=== PATIENT | female | born 1940 | race Caucasian/White ===

== ENCOUNTER 2017-04-20 18:05 | Emergency (ER) | payer MEDICARE ==
[2017-04-20] MEDS ORDERED: Ibuprofen 600 MG Tab PO ONE (18:20)
[2017-04-20] MEDS ORDERED: Sodium Chloride 0.9% 1,000 ML IV ONE (20:25)
--- NOTE | 2017-04-20 21:42 | EDM.PDOC ---
ED HPI GENERAL MEDICAL PROBLEM - General Chief Complaint: Gastrointestinal Problem Stated Complaint: TEMP, VERY CONFUSED, MONING Time Seen by Provider: 04/20/17 18:20 Source of Information: Reports: Patient, Family, RN History Limitations: Reports: Altered Mental Status - History of Present Illness INITIAL COMMENTS - FREE TEXT/NARRATIVE: 76 y.o.w.f with vascular dementia, came from the alf to the ed due to loose stool, poor po intake, fever, less active. Pt is not able to give a HPI Onset: Unknown/Unsure Onset Date: 04/20/17 Onset Time: 07:00 Duration: Hour(s):, Day(s):, Intermittent Location: Reports: Abdomen, Generalized Quality: Reports: Other (?) Severity: Mild Improves with: Reports: None Worsens with: Reports: None Associated Symptoms: Reports: Weakness - Related Data Allergies Allergy/AdvReac Type Severity Reaction Status Date / Time No Known Allergies Allergy Verified 06/30/14 14:02 Home Meds: Home Meds Aspirin [Roseann Chewable Aspirin] 81 mg PO DAILY 06/10/14 [History] Clopidogrel [Plavix] 75 mg PO DAILY 06/10/14 [History] Isosorbide Mononitrate [Imdur] 30 mg PO DAILY 06/10/14 [History] Metoprolol Succinate 25 mg PO DAILY 06/10/14 [History] Acetaminophen [Tylenol] 650 mg PO Q4H PRN #100 tablet 07/11/14 [Rx] Losartan Potassium 12.5 mg PO DAILY 04/20/17 [History] levETIRAcetam [Keppra] 500 mg BID 04/20/17 [History] Past Medical History HEENT History: Reports: Impaired Vision Cardiovascular History: Reports: CAD, Hypertension, Other (See Below) Other Cardiovascular History: Atherosclerotic heart Respiratory History: Reports: None Genitourinary History: Reports: Urinary 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 Psychiatric History: Reports: Dementia - Past Surgical History GI Surgical History: Reports: Other (See Below) Other GI Surgeries/Procedures: patient has a colostomy. Social & Family History - Family History Family Medical History: Noncontributory - Tobacco Use Smoking Status *Q: Never Smoker - Caffeine Use Caffeine Use: Reports: None - Alcohol Use Days Per Week of Alcohol Use: 0 Number of Drinks Per Day: 1 Total Drinks Per Week: 0 - Recreational Drug Use Recreational Drug Use: No - Living Situation & Occupation Living situation: Reports: , with Spouse ED ROS GENERAL - Review of Systems Review Of Systems: Unable To Obtain (due to vasular dementia) ED EXAM, GI/ABD - Physical Exam Exam: See Below Exam Limited By: Altered Mental Status General Appearance: Alert, WD/WN, Mild Distress Eyes: Bilateral: Normal Appearance Ears: Normal External Exam Nose: Normal Inspection Throat/Mouth: Other (dry mucosal membrane) Head: Atraumatic, Normocephalic Neck: Normal Inspection, Supple, Non-Tender, Full Range of Motion Respiratory/Chest: No Respiratory Distress, Lungs Clear, Normal Breath Sounds Cardiovascular: Normal Peripheral Pulses, Regular Rate, Rhythm, No Edema, No Gallop GI/Abdominal Exam: Normal Bowel Sounds, Non-Tender, No Distention, No Abnormal Bruit, No Mass, Pelvis Stable, Other (pt has a gastric outlet with loose stool) (Female) Exam: Deferred Rectal (Female) Exam: Deferred Back Exam: Normal Inspection, Full Range of Motion Extremities: Normal Inspection, Normal Range of Motion, Non-Tender, No Pedal Edema, Normal Capillary Refill Neurological: Alert, CN II-XII Intact Psychiatric: Other (vascular dementia) Skin Exam: Warm, Dry, Intact, Normal Color Lymphatic: No Adenopathy Course - Vital Signs Text/Narrative:: 76 y.o.w.f with vascular dementia, came from the alf to the ed due to loose stool, poor po intake, fever, less active. Pt is not able to give a HPI BP 11/67 Puls ox 94 on RA RR 16 PE: Dry mucosal membranes loose stool in the Gastric bag Labs: WBC 15.6 Lactic acid 1.8 S C diff neg Stool Cx is pending Impression: Dehydration, Diarrheam WBC 15.5 Tx: NS Reexam: Pt fet better after hydration. Stool Cx results are pending Plan: D/C with instructions Pt's daughter was present and understood and agreed with the instruction. Last Recorded V/S: Last Vital Signs Temp 37.3 C 04/20/17 20:48 Pulse 76 04/20/17 18:20 Resp 16 04/20/17 21:45 BP 118/45 L 04/20/17 21:45 Pulse Ox 96 04/20/17 21:45 - Orders/Labs/Meds Orders: Active Orders 24 hr Category Date Time Status CULTURE BLOOD [BC] Urgent Lab 04/20/17 20:48 Received CULTURE BLOOD [BC] Urgent Lab 04/20/17 20:54 Received CULTURE URINE [RM] Stat Lab 04/20/17 19:03 Received CULTURE-STOOL [MREF] Stat Lab 04/21/17 12:20 Uncollected OVA AND PARASITES [MREF] Stat Lab 04/21/17 12:20 Uncollected STOOL PH [MREF] Stat Lab 04/21/17 12:20 Uncollected Blood Culture x2 Reflex Set [OM.PC] Urgent Oth 04/20/17 20:36 Ordered Labs: Laboratory Tests 04/20/17 04/20/17 04/20/17 Range/Units 18:33 18:33 18:33 WBC 15.4 H (4.5-12.0) X10-3/uL RBC 5.55 H (3.23-5.20) x10(6)uL Hgb 16.1 H D (11.5-15.5) g/dL Hct 47.9 D (30.0-51.3) % MCV 86.3 (80-96) fL MCH 29.0 (27.7-33.6) pg MCHC 33.6 (32.2-35.4) g/dL RDW 13.2 (11.5-15.5) % Plt Count 357 (125-369) X10(3)uL MPV 7.5 (7.4-10.4) fL Add Manual Diff Yes Neutrophils % (Manual) 85 H (46-82) % Band Neutrophils % 3 (0-6) % Lymphocytes % (Manual) 9 L (13-37) % Monocytes % (Manual) 3 L (4-12) % PT 11.8 H (8.7-11.1) INR 1.17 H (0.89-1.13) Sodium 136 (135-145) mmol/L Potassium 4.2 (3.5-5.3) mmol/L Chloride 108 (100-110) mmol/L Carbon Dioxide 18 L (23-29) mmol/L BUN 25 H D (8-23) mg/dL Creatinine 1.0 (0.6-1.3) mg/dL Est Cr Clr Drug Dosing TNP Estimated GFR (MDRD) 54 L (>60) BUN/Creatinine Ratio 25.0 H (9-20) Glucose 122 H (80-116) mg/dL Lactic Acid (0.5-2.2) mmol/L Calcium 8.7 (8.6-10.2) mg/dL B-Natriuretic Peptide (0-100) pg/mL Urine Color (YELLOW) Urine Appearance (CLEAR) Urine pH (5.0-6.5) Ur Specific [place] (1.010-1.025) Urine Protein (NEGATIVE) mg/dL Urine Glucose (UA) (NEGATIVE) mg/dL Urine Ketones (NEGATIVE) mg/dL Urine Occult Blood (NEGATIVE) Urine Nitrite (NEGATIVE) Urine Bilirubin (NEGATIVE) Urine Urobilinogen (NEGATIVE) mg/dL Ur Leukocyte Esterase (NEGATIVE) Urine RBC (0) Urine WBC (0) Ur Squamous Epith Cells (NS,R,O) Urine Bacteria (NS) Stl Lactoferrin (TALHA) 04/20/17 04/20/17 04/20/17 Range/Units 18:33 18:33 19:03 WBC (4.5-12.0) X10-3/uL RBC (3.23-5.20) x10(6)uL Hgb (11.5-15.5) g/dL Hct (30.0-51.3) % MCV (80-96) fL MCH (27.7-33.6) pg MCHC (32.2-35.4) g/dL RDW (11.5-15.5) % Plt Count (125-369) X10(3)uL MPV (7.4-10.4) fL Add Manual Diff Neutrophils % (Manual) (46-82) % Band Neutrophils % (0-6) % Lymphocytes % (Manual) (13-37) % Monocytes % (Manual) (4-12) % PT (8.7-11.1) INR (0.89-1.13) Sodium (135-145) mmol/L Potassium (3.5-5.3) mmol/L Chloride (100-110) mmol/L Carbon Dioxide (23-29) mmol/L BUN (8-23) mg/dL Creatinine (0.6-1.3) mg/dL Est Cr Clr Drug Dosing Estimated GFR (MDRD) (>60) BUN/Creatinine Ratio (9-20) Glucose (80-116) mg/dL Lactic Acid 1.8 (0.5-2.2) mmol/L Calcium (8.6-10.2) mg/dL B-Natriuretic Peptide 94 (0-100) pg/mL Urine Color Yellow (YELLOW) Urine Appearance Slightly cloudy (CLEAR) Urine pH 5.0 (5.0-6.5) Ur Specific [place] 1.020 (1.010-1.025) Urine Protein Negative (NEGATIVE) mg/dL Urine Glucose (UA) Normal (NEGATIVE) mg/dL Urine Ketones Negative (NEGATIVE) mg/dL Urine Occult Blood Negative (NEGATIVE) Urine Nitrite Negative (NEGATIVE) Urine Bilirubin Negative (NEGATIVE) Urine Urobilinogen Normal (NEGATIVE) mg/dL Ur Leukocyte Esterase Negative (NEGATIVE) Urine RBC 0-5 (0) Urine WBC 0-5 (0) Ur Squamous Epith Cells Few H (NS,R,O) Urine Bacteria Few H (NS) Stl Lactoferrin (TALHA) 04/21/17 Range/Units 11:31 WBC (4.5-12.0) X10-3/uL RBC (3.23-5.20) x10(6)uL Hgb (11.5-15.5) g/dL Hct (30.0-51.3) % MCV (80-96) fL MCH (27.7-33.6) pg MCHC (32.2-35.4) g/dL RDW (11.5-15.5) % Plt Count (125-369) X10(3)uL MPV (7.4-10.4) fL Add Manual Diff Neutrophils % (Manual) (46-82) % Band Neutrophils % (0-6) % Lymphocytes % (Manual) (13-37) % Monocytes % (Manual) (4-12) % PT (8.7-11.1) INR (0.89-1.13) Sodium (135-145) mmol/L Potassium (3.5-5.3) mmol/L Chloride (100-110) mmol/L Carbon Dioxide (23-29) mmol/L BUN (8-23) mg/dL Creatinine (0.6-1.3) mg/dL Est Cr Clr Drug Dosing Estimated GFR (MDRD) (>60) BUN/Creatinine Ratio (9-20) Glucose (80-116) mg/dL Lactic Acid (0.5-2.2) mmol/L Calcium (8.6-10.2) mg/dL B-Natriuretic Peptide (0-100) pg/mL Urine Color (YELLOW) Urine Appearance (CLEAR) Urine pH (5.0-6.5) Ur Specific [place] (1.010-1.025) Urine Protein (NEGATIVE) mg/dL Urine Glucose (UA) (NEGATIVE) mg/dL Urine Ketones (NEGATIVE) mg/dL Urine Occult Blood (NEGATIVE) Urine Nitrite (NEGATIVE) Urine Bilirubin (NEGATIVE) Urine Urobilinogen (NEGATIVE) mg/dL Ur Leukocyte Esterase (NEGATIVE) Urine RBC (0) Urine WBC (0) Ur Squamous Epith Cells (NS,R,O) Urine Bacteria (NS) Stl Lactoferrin (TALHA) Positive Meds: Medications Discontinued Medications Generic Name Dose Route Start Last Admin Trade Name Flora PRN Reason Stop Dose Admin Sodium Chloride 1,000 mls @ 999 mls/hr 04/20/17 20:25 04/20/17 20:25 Normal Saline IV 04/20/17 21:25 999 mls/hr .BOLUS ONE Administration Ibuprofen 600 mg 04/20/17 18:20 04/20/17 19:48 Motrin PO 04/20/17 18:21 600 mg ONETIME ONE Administration Departure - Departure Time of Disposition: 21:43 Disposition: Home, Self-Care 01 Condition: Good Clinical Impression: Dehydration Diarrhea Qualifiers: Diarrhea type: unspecified type Qualified Code(s): R19.7 - Diarrhea, unspecified Dementia Qualifiers: Dementia type: vascular dementia - Discharge Information Instructions: Viral Gastroenteritis, Adult, [id number], Dehydration, Adult, [id number], Dehydration, Elderly, [id number] Referrals: Lani Zepeda PA [Primary Care Provider] - Forms: ED Department Discharge Additional Instructions: Please increase water intake, please follow up tomorrow for C Diff results. Please come back to the ed if your symptoms get worse acutely. - My Orders Last 24 Hours: My Active Orders 04/20/17 19:03 CULTURE URINE [RM] Stat 04/20/17 20:36 Blood Culture x2 Reflex Set [OM.PC] Urgent 04/20/17 20:48 CULTURE BLOOD [BC] Urgent 04/20/17 20:54 CULTURE BLOOD [BC] Urgent 04/21/17 12:20 CULTURE-STOOL [MREF] Stat OVA AND PARASITES [MREF] Stat STOOL PH [MREF] Stat - Assessment/Plan Last 24 Hours: My Active Orders 04/20/17 19:03 CULTURE URINE [RM] Stat 04/20/17 20:36 Blood Culture x2 Reflex Set [OM.PC] Urgent 04/20/17 20:48 CULTURE BLOOD [BC] Urgent 04/20/17 20:54 CULTURE BLOOD [BC] Urgent 04/21/17 12:20 CULTURE-STOOL [MREF] Stat OVA AND PARASITES [MREF] Stat STOOL PH [MREF] Stat
[2017-04-21 07:44] VITALS: BP 118/45
== END 2017-04-20 22:02 | disposition home or self-care (01) ==
LOC: FB.ED 18:05
DX: E86.0 Dehydration (principal); F01.50 Vascular dementia, unspecified severity, without behavioral disturbance, psychotic disturbance, mood disturbance, and anxiety; R19.7 Diarrhea, unspecified; I10 Essential (primary) hypertension; M19.90 Unspecified osteoarthritis, unspecified site; I25.10 Atherosclerotic heart disease of native coronary artery without angina pectoris; Z79.82 Long term (current) use of aspirin; Z79.899 Other long term (current) drug therapy
CPT/HCPCS: 36415; 80048; 81001; 83605; 83630; 83880; 85025; 85610; 87040; 87086; 87324; 96360; 99284; A9270; J7040; 51701

== ENCOUNTER 2017-07-08 21:46 | Emergency (ER) | payer MEDICARE ==
--- NOTE | 2017-07-08 22:45 | EDM.PDOC ---
ED HPI GENERAL MEDICAL PROBLEM - General Chief Complaint: Laceration Stated Complaint: LIP LAC Time Seen by Provider: 07/08/17 22:05 Source of Information: Reports: Patient History Limitations: Reports: No Limitations - History of Present Illness INITIAL COMMENTS - FREE TEXT/NARRATIVE: c/o lip lac from assisted, has dementia, no h/o falls, ate supper, felt well today staff noted a small cut on her upper lip, no other injuries, no blood found in room, staff not sure how she may have injured herself - Related Data Allergies Allergy/AdvReac Type Severity Reaction Status Date / Time No Known Allergies Allergy Verified 07/08/17 22:31 Home Meds: Home Meds Aspirin [Roseann Chewable Aspirin] 81 mg PO DAILY 06/10/14 [History] Clopidogrel [Plavix] 75 mg PO DAILY 06/10/14 [History] Isosorbide Mononitrate [Imdur] 30 mg PO DAILY 06/10/14 [History] Metoprolol Succinate 25 mg PO DAILY 06/10/14 [History] Acetaminophen [Tylenol] 650 mg PO Q4H PRN #100 tablet 07/11/14 [Rx] Losartan Potassium 12.5 mg PO DAILY 04/20/17 [History] levETIRAcetam [Keppra] 500 mg BID 04/20/17 [History] Past Medical History HEENT History: Reports: Impaired Vision Cardiovascular History: Reports: CAD, Hypertension, Other (See Below) Other Cardiovascular History: Atherosclerotic heart Respiratory History: Reports: None Genitourinary History: Reports: Urinary Incontinence 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 Psychiatric History: Reports: Dementia - Past Surgical History GI Surgical History: Reports: Other (See Below) Other GI Surgeries/Procedures: patient has a colostomy. Social & Family History - Family History Family Medical History: Noncontributory - Tobacco Use Smoking Status *Q: Never Smoker Second Hand Smoke Exposure: No - Caffeine Use Caffeine Use: Reports: Coffee, Soda - Alcohol Use Days Per Week of Alcohol Use: 0 Number of Drinks Per Day: 1 Total Drinks Per Week: 0 - Recreational Drug Use Recreational Drug Use: No - Living Situation & Occupation Living situation: Reports: , with Spouse ED ROS GENERAL - Review of Systems Review Of Systems: See Below Constitutional: Reports: No Symptoms HEENT: Reports: No Symptoms Respiratory: Reports: No Symptoms Cardiovascular: Reports: No Symptoms Endocrine: Reports: No Symptoms GI/Abdominal: Reports: No Symptoms : Reports: No Symptoms Musculoskeletal: Reports: No Symptoms Skin: Reports: Other (lip sore, no teeth sore) Neurological: Reports: No Symptoms Psychiatric: Reports: No Symptoms Hematologic/Lymphatic: Reports: No Symptoms Immunologic: Reports: No Symptoms ED EXAM, SKIN/RASH Exam: See Below Exam Limited By: Altered Mental Status General Appearance: Alert, WD/WN, No Apparent Distress, Other (pleasant, cooperative, good eye contact, very poor memory, not able to answer questions) Eye Exam: Bilateral Eye: Normal Inspection, PERRL Ears: Normal External Exam, Normal Canal, Hearing Grossly Normal Nose: Normal Inspection Throat/Mouth: Normal Inspection, Normal Gums, Normal Oropharynx, Normal Voice, No Airway Compromise, Other (L upper lip with a 5 mm lac with well apposed margins 1/2 way between grupo border and nares, thru skin, not lip proper, a corresponding lac present on buccal surface, slight swell, no bleed, no ecchymosis, teeth not loose, not tender, no gum tender, no gum injury, multiple teeth have small chips on biting surface, not clear if any are new, no teeth are sensitive) Head: Atraumatic, Normocephalic Neck: Normal Inspection, Supple, Non-Tender, Full Range of Motion Respiratory/Chest: No Respiratory Distress, Lungs Clear, Normal Breath Sounds, No Accessory Muscle Use, Chest Non-Tender Cardiovascular: Normal Peripheral Pulses, Regular Rate, Rhythm, No Edema, No Gallop, No Rub, Other (2/6 LUCERO at LSB) Back Exam: Normal Inspection, Full Range of Motion, NT Extremities: Normal Inspection, Normal Range of Motion, Non-Tender, No Pedal Edema Neurological: Alert, CN II-XII Intact, No Motor/Sensory Deficits Psychiatric: Normal Affect, Normal Mood Skin: Warm, Dry, Intact, Normal Color, No Rash Course - Vital Signs Last Recorded V/S: Last Vital Signs Temp 36.2 C 07/08/17 22:32 Pulse 73 07/08/17 22:32 Resp 20 07/08/17 22:32 BP 189/72 H 07/08/17 22:32 Pulse Ox 98 07/08/17 22:32 - Re-Assessments/Exams Free Text/Narrative Re-Assessment/Exam: 07/08/17 22:46 fall is unlikely given localized injury, likely walked into an object, should heal well, good blood supply Departure - Departure Time of Disposition: 22:47 Disposition: DC/Tfer to Otolaryngology Nurse [facility] 61 Condition: Good Clinical Impression: Laceration of lip - Discharge Information Referrals: Chip Harris MD [Primary Care Provider] - Additional Instructions: Continue usual meds and usual care. Avoid rubbing or touching lip. Observe lip for next 48 hours. While risk of infection is quite low, see a physician the same day if there is any increase in redness, swelling, warmth, pain, drainge or fever. See your doctor as needed. Call your Physician or Return to Emergency Department if: * Your condition worsens in any way. * You develop fever greater than 100.4. * You have vomitting that does not stop with medications. * You have pain that is not controlled with medications.
[2017-07-08 23:12] VITALS: BP 160/74
== END 2017-07-08 22:55 ==
LOC: FB.ED 21:46
DX: S01.511A Laceration without foreign body of lip, initial encounter (principal); I10 Essential (primary) hypertension; I25.10 Atherosclerotic heart disease of native coronary artery without angina pectoris; G40.909 Epilepsy, unspecified, not intractable, without status epilepticus; F03.90 Unspecified dementia, unspecified severity, without behavioral disturbance, psychotic disturbance, mood disturbance, and anxiety; Z79.82 Long term (current) use of aspirin; Z79.02 Long term (current) use of antithrombotics/antiplatelets; Z79.899 Other long term (current) drug therapy; W22.8XXA Striking against or struck by other objects, initial encounter; Y92.129 Unspecified place in nursing home as the place of occurrence of the external cause
CPT/HCPCS: 99283

== ENCOUNTER 2018-03-10 18:35 | Emergency (ER) | payer MEDICARE ==
--- NOTE | 2018-03-10 18:52 | EDM.PDOC ---
ED HPI GENERAL MEDICAL PROBLEM - General Stated Complaint: PASSED OUT Time Seen by Provider: 03/10/18 18:35 Source of Information: Reports: Patient, Family (daughter) History Limitations: Reports: Altered Mental Status - History of Present Illness INITIAL COMMENTS - FREE TEXT/NARRATIVE: 77 y.o.w.f with a h/o dementia, HTN, came to the ed with her daughter after she was screaming at the snf, holding her head and passed out for a second. Pt did not fall because a bystander held her and prevented a fall. Her BP 164/58 Pulse 61 Temp 36.9 Pulse ox 95 RR 17 Onset Date: 03/10/18 Onset Time: 17:00 Duration: Hour(s): Location: Reports: Head Severity: Moderate Improves with: Reports: None Worsens with: Reports: None Associated Symptoms: Reports: Confusion - Related Data Allergies Allergy/AdvReac Type Severity Reaction Status Date / Time No Known Allergies Allergy Verified 03/10/18 19:22 Home Meds: Home Meds Aspirin [Roseann Chewable Aspirin] 81 mg PO DAILY 06/10/14 [History] Clopidogrel [Plavix] 75 mg PO DAILY 06/10/14 [History] Isosorbide Mononitrate [Imdur] 30 mg PO DAILY 06/10/14 [History] Metoprolol Succinate 25 mg PO DAILY 06/10/14 [History] Acetaminophen [Tylenol] 650 mg PO Q4H PRN #100 tablet 07/11/14 [Rx] Losartan Potassium 12.5 mg PO DAILY 04/20/17 [History] levETIRAcetam [Keppra] 500 mg PO BID 04/20/17 [History] Nitroglycerin [Nitrostat] 0.4 mg PO ASDIRECTED PRN 07/08/17 [History] Acetaminophen [Tylenol Arthritis] 650 mg PO BID 03/10/18 [History] Alum Hydrox/Mag Hydrox/Simeth [Maalox Advanced] 15 ml PO Q4H PRN 03/10/18 [ History] Ibuprofen 200 mg PO Q6H PRN 03/10/18 [History] Loperamide HCl [Imodium A-D] 2 mg PO ASDIRECTED PRN 03/10/18 [History] Melatonin 3 mg PO BEDTIME 03/10/18 [History] guaiFENesin [Mucinex] 600 mg PO Q12H PRN 03/10/18 [History] Past Medical History HEENT History: Reports: Impaired Vision Cardiovascular History: Reports: CAD, Hypertension, Other (See Below) Other Cardiovascular History: Atherosclerotic heart Respiratory History: Reports: None Genitourinary History: Reports: Urinary Incontinence 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 Psychiatric History: Reports: Dementia - Infectious Disease History Infectious Disease History: Reports: Chicken Pox, Measles, Mumps - Past Surgical History GI Surgical History: Reports: Other (See Below) Other GI Surgeries/Procedures: patient has a colostomy. Social & Family History - Family History Family Medical History: Noncontributory - Caffeine Use Caffeine Use: Reports: Coffee, Soda - Living Situation & Occupation Living situation: Reports: , with Spouse ED ROS GENERAL - Review of Systems Review Of Systems: Unable To Obtain ED EXAM, NEURO - Physical Exam Exam: See Below Exam Limited By: Altered Mental Status General Appearance: Alert, WD/WN, Mild Distress Eye Exam: Bilateral Eye: Abnormal Pupil (pinpoint), EOMI Ears: Normal External Exam Nose: Normal Inspection, Normal Mucosa Throat/Mouth: Normal Inspection, Normal Lips Head Exam: Atraumatic, Normocephalic Neck: Normal Inspection, Supple, Non-Tender Respiratory/Chest: No Respiratory Distress, Lungs Clear, Normal Breath Sounds, No Accessory Muscle Use, Chest Non-Tender Cardiovascular: Normal Peripheral Pulses, Regular Rate, Rhythm, No Edema, No Gallop, No Murmur, No Rub GI/Abdominal: Normal Bowel Sounds, Soft, Non-Tender, No Organomegaly, No Distention, No Abnormal Bruit, No Mass, Pelvis Stable (Female) Exam: Deferred Rectal (Female) Exam: Deferred Neurological: Alert, Normal Mood/Affect, CN II-XII Intact, Normal Plantar Flexion Back Exam: Normal Inspection Extremities: Normal Inspection, Normal Range of Motion, Non-Tender, No Pedal Edema Psychiatric: Depressed Mood Skin Exam: Warm, Dry, Intact, Normal Color, No Rash EKG INTERPRETATION EKG Date: 03/10/18 Time: 19:20 Rhythm: NSR Rate (Beats/Min): 59 [place]: Normal P-Wave: Present QRS: Normal ST-T: Normal QT: Normal Comparison: NA - No Prior EKG Course - Vital Signs Text/Narrative:: 77 y.o.w.f with a h/o dementia, HTN, came to the ed with her daughter after she was screaming at the snf, holding her head and passed out for a second. Pt did not fall because a bystander held her and prevented a fall. Her BP 164/58 Pulse 61 Temp 36.9 Pulse ox 95 RR 17 PE: WNWD WF with dementia Labs, CBC, BMP nl Cr 1.4 GFR 34 UA pos for Leucocytesterase Imaging: Head CT: NAD Impression: Syncopal episode, HTN, Demetia Tx: Clonidine Impresison: Improved BP was 155/58 on D/C Plan: D/C with instructions Last Recorded V/S: Last Vital Signs Temp 36.9 C 03/10/18 18:35 Pulse 61 03/10/18 18:35 Resp 17 03/10/18 18:35 BP 155/59 H 03/10/18 19:49 Pulse Ox 95 03/10/18 18:35 - Orders/Labs/Meds Orders: Active Orders 24 hr Category Date Time Status EKG Documentation Completion [RC] ASDIRECTED Care 03/10/18 20:30 Active Head wo Cont [CT] Stat Exams 03/10/18 18:48 Taken CULTURE URINE [RM] Stat Lab 03/10/18 21:05 Received UA W/MICROSCOPIC [URIN] Stat Lab 03/10/18 21:05 Ordered EKG 12 Lead [EK] ONETIME Ther 03/10/18 19:18 Ordered Labs: Laboratory Tests 03/10/18 03/10/18 03/10/18 Range/Units 18:50 18:50 18:50 WBC 7.8 (4.5-12.0) X10-3/uL RBC 4.43 (3.23-5.20) x10(6)uL Hgb 13.7 (11.5-15.5) g/dL Hct 40.4 (30.0-51.3) % MCV 91.0 (80-96) fL MCH 31.0 (27.7-33.6) pg MCHC 34.0 (32.2-35.4) g/dL RDW 12.8 (11.5-15.5) % Plt Count 398 H (125-369) X10(3)uL MPV 7.4 (7.4-10.4) fL Neut % (Auto) 62.3 (46-82) % Lymph % (Auto) 26.0 (13-37) % [place] % (Auto) 8.1 (4-12) % Eos % (Auto) 3 (1.0-5.0) % Baso % (Auto) 1 (0-2) % Neut # (Auto) 4.9 (1.6-8.3) # Lymph # (Auto) 2.0 (0.6-5.0) # [place] # (Auto) 0.6 (0.0-1.3) # Eos # (Auto) 0.2 (0.0-0.8) # Baso # (Auto) 0.1 (0.0-0.2) # PT 9.3 (8.7-11.1) INR 0.96 (0.89-1.13) Sodium 138 (135-145) mmol/L Potassium 4.1 (3.5-5.3) mmol/L Chloride 105 (100-110) mmol/L Carbon Dioxide 26 (21-32) mmol/L BUN 16 (7-18) mg/dL Creatinine 1.4 H (0.55-1.02) mg/dL Est Cr Clr Drug Dosing TNP Estimated GFR (MDRD) 36 L (>60) BUN/Creatinine Ratio 11.4 (9-20) Glucose 104 (80-116) mg/dL Calcium 8.6 (8.6-10.2) mg/dL Urine Color (YELLOW) Urine Appearance (CLEAR) Urine pH (5.0-6.5) Ur Specific [place] (1.010-1.025) Urine Protein (NEGATIVE) mg/dL Urine Glucose (UA) (NEGATIVE) mg/dL Urine Ketones (NEGATIVE) mg/dL Urine Occult Blood (NEGATIVE) Urine Nitrite (NEGATIVE) Urine Bilirubin (NEGATIVE) Urine Urobilinogen (NEGATIVE) mg/dL Ur Leukocyte Esterase (NEGATIVE) Urine RBC (0) Urine WBC (0) Ur Squamous Epith Cells (NS,R,O) Urine Bacteria (NS) 03/10/18 Range/Units 21:05 WBC (4.5-12.0) X10-3/uL RBC (3.23-5.20) x10(6)uL Hgb (11.5-15.5) g/dL Hct (30.0-51.3) % MCV (80-96) fL MCH (27.7-33.6) pg MCHC (32.2-35.4) g/dL RDW (11.5-15.5) % Plt Count (125-369) X10(3)uL MPV (7.4-10.4) fL Neut % (Auto) (46-82) % Lymph % (Auto) (13-37) % [place] % (Auto) (4-12) % Eos % (Auto) (1.0-5.0) % Baso % (Auto) (0-2) % Neut # (Auto) (1.6-8.3) # Lymph # (Auto) (0.6-5.0) # [place] # (Auto) (0.0-1.3) # Eos # (Auto) (0.0-0.8) # Baso # (Auto) (0.0-0.2) # PT (8.7-11.1) INR (0.89-1.13) Sodium (135-145) mmol/L Potassium (3.5-5.3) mmol/L Chloride (100-110) mmol/L Carbon Dioxide (21-32) mmol/L BUN (7-18) mg/dL Creatinine (0.55-1.02) mg/dL Est Cr Clr Drug Dosing Estimated GFR (MDRD) (>60) BUN/Creatinine Ratio (9-20) Glucose (80-116) mg/dL Calcium (8.6-10.2) mg/dL Urine Color Yellow (YELLOW) Urine Appearance Clear (CLEAR) Urine pH 5.0 (5.0-6.5) Ur Specific [place] 1.010 (1.010-1.025) Urine Protein Negative (NEGATIVE) mg/dL Urine Glucose (UA) Normal (NEGATIVE) mg/dL Urine Ketones Negative (NEGATIVE) mg/dL Urine Occult Blood Negative (NEGATIVE) Urine Nitrite Negative (NEGATIVE) Urine Bilirubin Negative (NEGATIVE) Urine Urobilinogen Normal (NEGATIVE) mg/dL Ur Leukocyte Esterase Small H (NEGATIVE) Urine RBC 0-5 (0) Urine WBC 0-5 (0) Ur Squamous Epith Cells Few H (NS,R,O) Urine Bacteria Occasional H (NS) Meds: Medications Discontinued Medications Generic Name Dose Route Start Last Admin Trade Name Flora PRN Reason Stop Dose Admin Clonidine HCl 0.1 mg 03/10/18 19:43 03/10/18 19:49 Catapres PO 03/10/18 19:44 0.1 mg ONETIME ONE Administration Departure - Departure Time of Disposition: 21:09 Disposition: Home, Self-Care 01 Condition: Good Clinical Impression: Episode of syncope Qualifiers: Syncope type: unspecified Qualified Code(s): R55 - Syncope and collapse Hypertension Qualifiers: Hypertension type: essential hypertension Qualified Code(s): I10 - Essential ( primary) hypertension Dementia Qualifiers: Dementia type: vascular dementia - Discharge Information *PRESCRIPTION DRUG MONITORING PROGRAM REVIEWED*: Yes *COPY OF PRESCRIPTION DRUG MONITORING REPORT IN PATIENT SALVADOR: Yes Instructions: Syncope, [id number] Referrals: Lani Zepeda PA [Primary Care Provider] - Forms: ED Department Discharge Additional Instructions: Please increase water intake, please cont your meds please f/u, come back if your symptoms get worse acutely, please check the BP every 2 hours times 3. - My Orders Last 24 Hours: My Active Orders 03/10/18 18:48 Head wo Cont [CT] Stat 03/10/18 19:18 EKG 12 Lead [EK] ONETIME 03/10/18 20:30 EKG Documentation Completion [RC] ASDIRECTED 03/10/18 21:05 CULTURE URINE [RM] Stat UA W/MICROSCOPIC [URIN] Stat - Assessment/Plan Last 24 Hours: My Active Orders 03/10/18 18:48 Head wo Cont [CT] Stat 03/10/18 19:18 EKG 12 Lead [EK] ONETIME 03/10/18 20:30 EKG Documentation Completion [RC] ASDIRECTED 03/10/18 21:05 CULTURE URINE [RM] Stat UA W/MICROSCOPIC [URIN] Stat
[2018-03-10] MEDS ORDERED: cloNIDine 0.1 MG Tab PO ONE (19:43)
[2018-03-10 21:45] VITALS: BP 156/64
== END 2018-03-10 21:36 | disposition home or self-care (01) ==
LOC: FB.ED 18:35
DX: R55 Syncope and collapse (principal); I10 Essential (primary) hypertension; F01.50 Vascular dementia, unspecified severity, without behavioral disturbance, psychotic disturbance, mood disturbance, and anxiety; Z79.82 Long term (current) use of aspirin; Z79.899 Other long term (current) drug therapy
CPT/HCPCS: 36415; 70450; 80048; 81001; 85025; 85610; 87086; 99284; A9270

== ENCOUNTER 2019-05-09 11:51 | Emergency (ER) | payer MEDICARE ==
--- NOTE | 2019-05-09 11:53 | EDM.PDOC ---
ED HPI GENERAL MEDICAL PROBLEM - General Time Seen by Provider: 05/09/19 11:52 Source of Information: Reports: Patient History Limitations: Reports: Other (Patient with dementia/disoriented) - History of Present Illness INITIAL COMMENTS - FREE TEXT/NARRATIVE: 78-year-old female who apparently was sitting in a chair at [facility] at approximately 10:45-11 AM and the reports were that her eyes rolled back, she became profusely diaphoretic and unresponsive. This lasted for approximately 5 minutes and she was noted to have a blood pressure in the 80s. EMS has since found that her blood pressures climbed to the 100 systolic range and the patient was brought to the emergency room via ambulance. Patient has pretty severe dementia and cannot provide any information but according to the son who is here with her, he feels that she seems to be back to her baseline. There were no reports of pain. No antecedent symptoms. No nausea or vomiting. No fevers reported. The patient is awake and alert at present but disoriented to place, time and situation. She apparently had a similar episode about a year ago and nothing was found. This is really all the history that can be obtained. There are no other associated signs or symptoms. There are no other modifying factors. 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 (see below) (Nothing) - Related Data Allergies Allergy/AdvReac Type Severity Reaction Status Date / Time No Known Allergies Allergy Verified 05/09/19 11:55 Home Meds: Home Meds Aspirin [Roseann Chewable Aspirin] 81 mg PO DAILY 06/10/14 [History] Clopidogrel [Plavix] 75 mg PO DAILY 06/10/14 [History] Isosorbide Mononitrate [Imdur] 30 mg PO DAILY 06/10/14 [History] Metoprolol Succinate 25 mg PO DAILY 06/10/14 [History] Acetaminophen [Tylenol] 650 mg PO Q4H PRN #100 tablet 07/11/14 [Rx] Losartan Potassium 12.5 mg PO DAILY 04/20/17 [History] levETIRAcetam [Keppra] 500 mg PO BID 04/20/17 [History] Nitroglycerin [Nitrostat] 0.4 mg PO ASDIRECTED PRN 07/08/17 [History] Acetaminophen [Tylenol Arthritis] 650 mg PO BID 03/10/18 [History] Alum Hydrox/Mag Hydrox/Simeth [Maalox Advanced] 15 ml PO Q4H PRN 03/10/18 [ History] Ibuprofen 200 mg PO Q6H PRN 03/10/18 [History] Loperamide HCl [Imodium A-D] 2 mg PO ASDIRECTED PRN 03/10/18 [History] Melatonin 3 mg PO BEDTIME 03/10/18 [History] guaiFENesin [Mucinex] 600 mg PO Q12H PRN 03/10/18 [History] Past Medical History HEENT History: Reports: Impaired Vision Cardiovascular History: Reports: CAD, Hypertension, PR, Other (See Below) Other Cardiovascular History: Atherosclerotic heart Genitourinary History: Reports: Urinary Incontinence HEALTH ACTUARY History: Reports: Musculoskeletal History: Reports: Arthritis Neurological History: Reports: Other (See Below) Other Neuro History: has dementia without behavioral disturbance, Epilepsy, not intractable, without status epilepticus. Psychiatric History: Reports: Dementia - Infectious Disease History Infectious Disease History: Reports: Chicken Pox, Measles, Mumps - Past Surgical History Cardiovascular Surgical History: Reports: Coronary Artery Stent GI Surgical History: Reports: Colon, Colonoscopy, Colostomy Social & Family History - Family History Family Medical History: Noncontributory - Tobacco Use Smoking Status *Q: Never Smoker - Caffeine Use Caffeine Use: Reports: Coffee, Soda - Alcohol Use Alcohol Use History: No - Living Situation & Occupation Living situation: Reports: Extended Care Facility (Lives at [facility]) Occupation: Retired Social History Comment: Her son is here with her. Son confirms that the patient is a DNR/DNI. ED ROS GENERAL - Review of Systems Review Of Systems: Unable To Obtain - Physical Exam Exam: See Below Exam Limited By: No Limitations General Appearance: Alert, WD/WN, No Apparent Distress Eye Exam: Bilateral Eye: EOMI, Normal Inspection Ears: Normal External Exam Nose: Normal Inspection, Normal Mucosa Throat/Mouth: Normal Inspection, Normal Lips, Normal Oropharynx, Normal Voice, No Airway Compromise Head Exam: Atraumatic, Normocephalic Neck: Normal Inspection, Supple, Non-Tender, Full Range of Motion Respiratory/Chest: No Respiratory Distress, Lungs Clear, Normal Breath Sounds, No Accessory Muscle Use, Chest Non-Tender, Other (There is an ecchymosis on her right chest that appears to be greater than 3-4 days old) Cardiovascular: Normal Peripheral Pulses, Regular Rate, Rhythm, No JVD GI/Abdominal: Normal Bowel Sounds, Soft, Non-Tender, No Mass Neuro Exam (Abbreviated): Alert, CN II-XII Intact, No Motor/Sensory Deficits, Disoriented Back Exam: Normal Inspection Extremities: Normal Inspection, Normal Range of Motion, Non-Tender, No Pedal Edema, Normal Capillary Refill Skin Exam: Warm, Dry, Intact, Normal Color, No Rash EKG INTERPRETATION EKG Date: 05/09/19 Time: 12:28 Rhythm: NSR Rate (Beats/Min): 61 [place]: Normal P-Wave: Present QRS: Normal ST-T: Normal QT: Prolonged (Slightly prolonged) Comparison: No Change (Poor R-wave progression is present and no change from EKG performed on 03/10/2018.) Course - Orders/Labs/Meds Orders: Active Orders 24 hr Category Date Time Status EKG Documentation Completion [RC] ASDIRECTED Care 05/09/19 12:03 Active Abdomen Pelvis wo Cont [CT] Stat Exams 05/09/19 14:56 Taken Head wo Cont [CT] Stat Exams 05/09/19 12:32 Taken CULTURE URINE [RM] Stat Lab 05/09/19 12:02 Received EKG 12 Lead [EK] Routine Ther 05/09/19 12:02 Ordered Labs: Laboratory Tests 05/09/19 05/09/19 05/09/19 Range/Units 12:02 12:45 12:45 WBC 8.6 (4.5-12.0) X10-3/uL RBC 4.23 (3.23-5.20) x10(6)uL Hgb 12.2 (11.5-15.5) g/dL Hct 38.3 (30.0-51.3) % MCV 90.5 (80-96) fL MCH 28.9 (27.7-33.6) pg MCHC 32.0 L (32.2-35.4) g/dL RDW 12.6 (11.5-15.5) % Plt Count 361 (125-369) X10(3)uL MPV 7.8 (7.4-10.4) fL Neut % (Auto) 71.6 (46-82) % Lymph % (Auto) 19.2 (13-37) % [place] % (Auto) 6.1 (4-12) % Eos % (Auto) 2 (1.0-5.0) % Baso % (Auto) 1 (0-2) % Neut # (Auto) 6.2 (1.6-8.3) # Lymph # (Auto) 1.6 (0.6-5.0) # [place] # (Auto) 0.5 (0.0-1.3) # Eos # (Auto) 0.2 (0.0-0.8) # Baso # (Auto) 0.1 (0.0-0.2) # Sodium 142 (135-145) mmol/L Potassium 4.3 (3.5-5.3) mmol/L Chloride 108 (100-110) mmol/L Carbon Dioxide 25 (21-32) mmol/L BUN 14 (7-18) mg/dL Creatinine 1.1 H (0.55-1.02) mg/dL Est Cr Clr Drug Dosing TNP Estimated GFR (MDRD) 48 L (>60) BUN/Creatinine Ratio 12.7 (9-20) Glucose 107 (80-116) mg/dL Calcium 8.6 (8.6-10.2) mg/dL Total Bilirubin 0.5 (0.1-1.3) mg/dL AST 29 H (5-25) IU/L ALT 34 (12-36) U/L Alkaline Phosphatase 135 H (56-112) IU/L Troponin I (<0.017-0.056) ng/mL Total Protein 6.0 (6.0-8.0) g/dL Albumin 3.0 L (3.2-4.6) g/dL Globulin 3.0 g/dL Albumin/Globulin Ratio 1.0 Urine Color Yellow (YELLOW) Urine Appearance Clear (CLEAR) Urine pH 5.0 (5.0-6.5) Ur Specific [place] 1.020 (1.010-1.025) Urine Protein Negative (NEGATIVE) mg/dL Urine Glucose (UA) Normal (NORMAL) mg/dL Urine Ketones Negative (NEGATIVE) mg/dL Urine Occult Blood Negative (NEGATIVE) Urine Nitrite Negative (NEGATIVE) Urine Bilirubin Negative (NEGATIVE) Urine Urobilinogen Normal (NEGATIVE) mg/dL Ur Leukocyte Esterase Negative (NEGATIVE) Urine RBC 0-5 (0-5) Urine WBC 0-5 (0-5) Ur Squamous Epith Cells Occasional (NS,R,O) Urine Bacteria Moderate H (NS) 05/09/19 Range/Units 12:45 WBC (4.5-12.0) X10-3/uL RBC (3.23-5.20) x10(6)uL Hgb (11.5-15.5) g/dL Hct (30.0-51.3) % MCV (80-96) fL MCH (27.7-33.6) pg MCHC (32.2-35.4) g/dL RDW (11.5-15.5) % Plt Count (125-369) X10(3)uL MPV (7.4-10.4) fL Neut % (Auto) (46-82) % Lymph % (Auto) (13-37) % [place] % (Auto) (4-12) % Eos % (Auto) (1.0-5.0) % Baso % (Auto) (0-2) % Neut # (Auto) (1.6-8.3) # Lymph # (Auto) (0.6-5.0) # [place] # (Auto) (0.0-1.3) # Eos # (Auto) (0.0-0.8) # Baso # (Auto) (0.0-0.2) # Sodium (135-145) mmol/L Potassium (3.5-5.3) mmol/L Chloride (100-110) mmol/L Carbon Dioxide (21-32) mmol/L BUN (7-18) mg/dL Creatinine (0.55-1.02) mg/dL Est Cr Clr Drug Dosing Estimated GFR (MDRD) (>60) BUN/Creatinine Ratio (9-20) Glucose (80-116) mg/dL Calcium (8.6-10.2) mg/dL Total Bilirubin (0.1-1.3) mg/dL AST (5-25) IU/L ALT (12-36) U/L Alkaline Phosphatase (56-112) IU/L Troponin I < 0.017 L (<0.017-0.056) ng/mL Total Protein (6.0-8.0) g/dL Albumin (3.2-4.6) g/dL Globulin g/dL Albumin/Globulin Ratio Urine Color (YELLOW) Urine Appearance (CLEAR) Urine pH (5.0-6.5) Ur Specific [place] (1.010-1.025) Urine Protein (NEGATIVE) mg/dL Urine Glucose (UA) (NORMAL) mg/dL Urine Ketones (NEGATIVE) mg/dL Urine Occult Blood (NEGATIVE) Urine Nitrite (NEGATIVE) Urine Bilirubin (NEGATIVE) Urine Urobilinogen (NEGATIVE) mg/dL Ur Leukocyte Esterase (NEGATIVE) Urine RBC (0-5) Urine WBC (0-5) Ur Squamous Epith Cells (NS,R,O) Urine Bacteria (NS) - Radiology Interpretation Free Text/Narrative:: CT scan of head showed no acute pathology. There is a small right posterior parietal dural calcification consistent with a tiny meningioma but it is unchanged. Specifically there is no evidence of bleeding, fractures or stroke. This was read by the [facility] radiologist. - Re-Assessments/Exams Free Text/Narrative Re-Assessment/Exam: 05/09/19 13:36: Patient's blood tests, urine tests, EKG and CT scan of head were reassuring and unchanged from previous. There was some concern from the family at this point that she was having some abdominal discomfort. I did not notice any on exam previously today. However, reevaluation of the patient did show that she had some discomfort with palpation. Her abdomen was still soft, nonrigid and had active bowel sounds. The colostomy bag was functioning well appearing stool. She does have significant history of diverticulosis and diverticulitis is what led to her having her colectomy and colostomy. Therefore at this point, we will do a CT scan of her abdomen and pelvis without contrast. 05/09/19 16:16: CT scan of abdomen and pelvis came back and showed evidence of parastomal hernia with bowel loops within the hernia but the bowel loops were decompressed and did not show any evidence of obstruction. She also has nephrolithiasis. The patient has remained vitally stable. She is bright and awake at this point and interacting with family members in the room with no problems. I answered the family's questions in regard to the parastomal hernias and the syncopal episode. I am unsure of the cause of the syncopal episode but it is possible this could be related to a transient obstruction related to the hernias (there was a report that the ostomy bag was empty this morning which was unusual) and has now cleared as the ostomy bag is now functioning well. She does have some tenderness on exam but then is nice and soft with no rigidity or rebound. She will need follow-up with her primary doctor and possibly referral back to the surgeon who placed the colostomy. However, she is stable for discharge this point and the family is in agreement with this plan. Departure - Departure Time of Disposition: 16:25 Disposition: DC/Tfer to SNF 03 Condition: Fair (Stable) Clinical Impression: Parastomal hernia without obstruction or gangrene Syncope Qualifiers: Syncope type: unspecified Qualified Code(s): R55 - Syncope and collapse - Discharge Information Instructions: Syncope, [id number] Referrals: Lani Zepeda PA [Primary Care Provider] - Additional Instructions: Your mother's blood tests were reassuringly normal. The urine test was normal. Her EKG was normal. The CT scan of her head showed no acute problems. The CT scan of her abdomen and pelvis did show evidence of a hernia around the colostomy stoma. There was no evidence of infection or obstruction. As we discussed, I am unsure why she had the pass out or syncopal spell. It could have been related to a transient obstruction of her intestines because of that hernia. But it appears to have cleared as the ostomy appears to be working well and there is no evidence of obstruction at this time. Make sure she drinks plenty of fluids. Follow-up with the patient's primary doctor this coming week as the patient may need to be referred back to the surgeon who did the colostomy. Back to the emergency department for vomiting, fever, recurrent pass out spells or any other concerning sign or symptom. - My Orders Last 24 Hours: My Active Orders 05/09/19 12:02 CULTURE URINE [RM] Stat EKG 12 Lead [EK] Routine 05/09/19 12:03 EKG Documentation Completion [RC] ASDIRECTED 05/09/19 12:32 Head wo Cont [CT] Stat 05/09/19 14:56 Abdomen Pelvis wo Cont [CT] Stat - Assessment/Plan Last 24 Hours: My Active Orders 05/09/19 12:02 CULTURE URINE [RM] Stat EKG 12 Lead [EK] Routine 05/09/19 12:03 EKG Documentation Completion [RC] ASDIRECTED 05/09/19 12:32 Head wo Cont [CT] Stat 05/09/19 14:56 Abdomen Pelvis wo Cont [CT] Stat
[2019-05-09 21:22] VITALS: BP 138/48; PULSE 62
== END 2019-05-09 16:28 | disposition home or self-care (01) ==
LOC: FB.ED 11:51
DX: K43.5 Parastomal hernia without obstruction or gangrene (principal); R55 Syncope and collapse; I25.10 Atherosclerotic heart disease of native coronary artery without angina pectoris; I10 Essential (primary) hypertension; I25.2 Old myocardial infarction; G40.909 Epilepsy, unspecified, not intractable, without status epilepticus; Z79.82 Long term (current) use of aspirin; Z79.01 Long term (current) use of anticoagulants; Z79.899 Other long term (current) drug therapy
CPT/HCPCS: 36415; 70450; 74176; 80053; 81001; 84484; 85025; 87086; 93005; 99284-25

== ENCOUNTER 2020-07-10 19:51 | Emergency (ER) | payer MEDICARE ==
--- NOTE | 2020-07-10 20:15 | EDM.PDOC ---
ED HPI GENERAL MEDICAL PROBLEM - General Stated Complaint: FELL Time Seen by Provider: 07/10/20 19:55 Source of Information: Reports: Family History Limitations: Reports: No Limitations - History of Present Illness INITIAL COMMENTS - FREE TEXT/NARRATIVE: Patient presented to the ED from the [facility] because of a head injury after a fall. [facility] staff heard herd fall so they went to check on her and found her on the floor. She sustained a goose egg hematoma over the occipital area and c/o mild headache. There was no LOC after the fall. R posterior head Pain Score (Numeric/FACES): 5 - Related Data Allergies Allergy/AdvReac Type Severity Reaction Status Date / Time azithromycin Allergy Cannot Verified 07/10/20 20:18 Remember rivastigmine Allergy Cannot Verified 07/10/20 20:18 Remember tramadol Allergy Cannot Verified 07/10/20 20:18 Remember Home Meds: Home Meds Aspirin [Roseann Chewable Aspirin] 81 mg PO DAILY 06/10/14 [History] Clopidogrel [Plavix] 75 mg PO DAILY 06/10/14 [History] Isosorbide Mononitrate [Imdur] 30 mg PO DAILY 06/10/14 [History] Metoprolol Succinate 25 mg PO DAILY 06/10/14 [History] Acetaminophen [Tylenol] 650 mg PO Q4H PRN #100 tablet 07/11/14 [Rx] Losartan Potassium 12.5 mg PO DAILY 04/20/17 [History] levETIRAcetam [Keppra] 500 mg PO BID 04/20/17 [History] Nitroglycerin [Nitrostat] 0.4 mg PO ASDIRECTED PRN 07/08/17 [History] Acetaminophen [Tylenol Arthritis] 650 mg PO BID 03/10/18 [History] Alum Hydrox/Mag Hydrox/Simeth [Maalox Advanced] 15 ml PO Q4H PRN 03/10/18 [History] Ibuprofen 200 mg PO Q6H PRN 03/10/18 [History] Loperamide HCl [Imodium A-D] 2 mg PO ASDIRECTED PRN 03/10/18 [History] Melatonin 3 mg PO BEDTIME 03/10/18 [History] guaiFENesin [Mucinex] 600 mg PO Q12H PRN 03/10/18 [History] Sulfamethoxazole/Trimethoprim [Bactrim Ds Tablet] 1 each PO BID #6 tablet 07/10/20 [Rx] Past Medical History HEENT History: Reports: Impaired Vision Cardiovascular History: Reports: CAD, Hypertension, [place], Other (See Below) Other Cardiovascular History: Atherosclerotic heart Respiratory History: Reports: None Gastrointestinal History: Reports: Other (See Below) Genitourinary History: Reports: Urinary Incontinence [employer] History: Reports: Musculoskeletal History: Reports: Arthritis Neurological History: Reports: Other (See Below) Other Neuro History: has dementia without behavioral disturbance, Epilepsy, not intractable, without status epilepticus. Psychiatric History: Reports: Dementia - Infectious Disease History Infectious Disease History: Reports: Chicken Pox, Measles, Mumps - Past Surgical History Cardiovascular Surgical History: Reports: Coronary Artery Stent GI Surgical History: Reports: Colon, Colonoscopy, Colostomy Social & Family History - Family History Family Medical History: No Pertinent Family History - Caffeine Use Caffeine Use: Reports: Coffee, Soda - Living Situation & Occupation Living situation: Reports: Extended Care Facility (Lives at [facility]) Occupation: Retired ED ROS GENERAL - Review of Systems Review Of Systems: See Below Constitutional: Reports: No Symptoms HEENT: Reports: No Symptoms Respiratory: Reports: No Symptoms Cardiovascular: Reports: No Symptoms Endocrine: Reports: No Symptoms GI/Abdominal: Reports: No Symptoms : Reports: No Symptoms Musculoskeletal: Reports: No Symptoms Skin: Reports: No Symptoms Neurological: Reports: No Symptoms ED EXAM, GENERAL - Physical Exam Exam: See Below Exam Limited By: Other (demented) General Appearance: Alert Ears: Normal External Exam, Normal Canal, Hearing Grossly Normal Nose: Normal Inspection, Normal Mucosa, No Blood Throat/Mouth: Normal Inspection, Normal Lips, Normal Teeth Head: Atraumatic, Normocephalic Neck: Normal Inspection, Supple, Non-Tender, Full Range of Motion Respiratory/Chest: No Respiratory Distress, Lungs Clear, Normal Breath Sounds Cardiovascular: Normal Peripheral Pulses, Regular Rate, Rhythm, No Edema, No G allop, No JVD GI/Abdominal: Normal Bowel Sounds, Soft, Non-Tender, No Organomegaly Back Exam: Normal Inspection, Full Range of Motion Extremities: Normal Inspection, Normal Range of Motion Neurological: Alert Psychiatric: Normal Affect Skin Exam: Warm Course - Vital Signs Text/Narrative:: Head CT-neg U/A-see result Last Recorded V/S: Last Vital Signs Temp 35.3 C L 07/10/20 19:51 Pulse 76 07/10/20 19:51 Resp 20 07/10/20 19:51 BP 175/122 H 07/10/20 19:51 Pulse Ox 98 07/10/20 19:51 - Orders/Labs/Meds Orders: Active Orders 24 hr Category Date Time Status Head wo Cont [CT] Stat Exams 07/10/20 20:04 Taken CULTURE URINE [RM] Stat Lab 07/10/20 21:51 Ordered Labs: Laboratory Tests 07/10/20 Range/Units 20:25 Urine Color Yellow (YELLOW) Urine Appearance Clear (CLEAR) Urine pH 5.0 (5.0-6.5) Ur Specific [place] 1.010 (1.010-1.025) Urine Protein Negative (NEGATIVE) mg/dL Urine Glucose (UA) Normal (NORMAL) mg/dL Urine Ketones Negative (NEGATIVE) mg/dL Urine Occult Blood Negative (NEGATIVE) Urine Nitrite Negative (NEGATIVE) Urine Bilirubin Negative (NEGATIVE) Urine Urobilinogen Normal (NEGATIVE) mg/dL Ur Leukocyte Esterase Moderate H (NEGATIVE) Urine RBC 0-5 (0-5) Urine WBC 5-10 H (0-5) Ur Squamous Epith Cells Few H (NS,R,O) Urine Bacteria Few H (NS) Departure - Departure Time of Disposition: 21:00 Disposition: DC/Tfer to [facility]illed Nursing Care [facility] Condition: Good Clinical Impression: Closed head injury, Fall, Hematoma, UTI (urinary tract infection) - Discharge Information Prescriptions: Sulfamethoxazole/Trimethoprim [Bactrim Ds Tablet] 1 each PO BID #6 tablet Instructions: Fall Prevention in the Home, Adult, [id number], Head Injury, Adult, [id number], Urinary Tract Infection, Adult, [id number] Referrals: Lani Zepeda PA [Primary Care Provider] - Forms: ED Department Discharge Additional Instructions: Please read discharge instructions on head injury, fall, and UTI Take tylenol 1000 mg every 8 hours as needed for headache Bactrim DS 1 tablet 2 times daily for 3 days We will call you in the morning once the result of your urine is back Follow up as needed Sepsis Event Note (ED) - Focused Exam Vital Signs: Vital Signs Temp Pulse Resp BP Pulse Ox 07/10/20 19:51 35.3 C L 76 20 175/122 H 98 - My Orders Last 24 Hours: My Active Orders 07/10/20 20:04 Head wo Cont [CT] Stat 07/10/20 21:51 CULTURE URINE [RM] Stat - Assessment/Plan Last 24 Hours: My Active Orders 07/10/20 20:04 Head wo Cont [CT] Stat 07/10/20 21:51 CULTURE URINE [RM] Stat
[2020-07-11 01:00] VITALS: BP 137/110; PULSE 69
== END 2020-07-10 21:25 | disposition home or self-care (01) ==
LOC: FB.ED 19:51
DX: S00.03XA Contusion of scalp, initial encounter (principal); N39.0 Urinary tract infection, site not specified; I10 Essential (primary) hypertension; I25.10 Atherosclerotic heart disease of native coronary artery without angina pectoris; I25.2 Old myocardial infarction; Z88.1 Allergy status to other antibiotic agents; Z88.5 Allergy status to narcotic agent; Z88.8 Allergy status to other drugs, medicaments and biological substances; Z79.82 Long term (current) use of aspirin; Z79.02 Long term (current) use of antithrombotics/antiplatelets; Z79.899 Other long term (current) drug therapy; W17.89XA Other fall from one level to another, initial encounter
CPT/HCPCS: 70450; 81001; 87086; 99284-25